=== PATIENT | male | born 1980 | race Caucasian/White ===

== ENCOUNTER 2021-09-18 04:30 | Emergency (ER) | payer MEDICAID ==
[~2021-09-18] VITALS: Ht 182.9 cm; Wt 77.3 kg
[2021-09-18 04:33] VITALS: BP 127/85
== END 2021-09-18 06:08 ==
LOC: ER 04:31
DX: T18.9XXA Foreign body of alimentary tract, part unspecified, initial encounter (principal); X58.XXXA Exposure to other specified factors, initial encounter; Y93.89 Activity, other specified; Y92.89 Other specified places as the place of occurrence of the external cause; Y99.8 Other external cause status
CPT/HCPCS: 74018; 99283